=== PATIENT | male | born 1975 | race Caucasian/White ===

== ENCOUNTER 2016-09-15 15:36 | Emergency (ER) | payer SELFPAY ==
[~2016-09-15] VITALS: Ht 170.2 cm; Wt 77.1 kg
[2016-09-15 16:00] VITALS: BP 146/73
[2016-09-15] MEDS ORDERED: ORPH100T PO (16:16)
[2016-09-15] MEDS ORDERED: HYDR-971 PO (16:16)
[2016-09-15] MEDS ORDERED: PRED50TA PO (16:16)
--- NOTE | 2016-09-15 16:16 | PHYS DOC ---
Past Medical History Past Medical History: Other Additional Past Medical Histor: Patient states "I may have high blood pressure ", CHRONIC BACK PAIN, SEAS AL Past Surgical History: No Surgical History Alcohol Use: None Drug Use: None Adult General Chief Complaint Chief Complaint: BACK PAIN - NO INJURY [facility] HPI Patient is a 40 year old male who presents Emergency Department with complaint of ongoing low back pain past 2 weeks. Patient reports his left-sided low back pain that radiates down his left leg , across his groin and then down into his foot. Patient states he's had intermittent numbness of his entire foot during this period of time. Patient states he has a history of "a bad back" without any known history of spinal column or spinal cord injuries. He denies any history of neuromuscular disorders. Patient denies any previous images to his back. He denies saddle anesthesia or incontinence of urine and bowel. Patient states that the inciting injury was when he was lifting and moving a hot water heater 2 weeks ago. He does not currently have a primary care doctor. Review of Systems Review of Systems Constitutional: Denies fever or chills [] Eyes: Denies change in visual acuity, redness, or eye pain [] HENT: Denies nasal congestion or sore throat [] Respiratory: Denies cough or shortness of breath [] Cardiovascular: No additional information not addressed in HPI [] GI: Denies abdominal pain, nausea, vomiting, bloody stools or diarrhea [] : Denies dysuria or hematuria [] Musculoskeletal: Denies back pain or joint pain [] Integument: Denies rash or skin lesions [] Neurologic: Denies headache, focal weakness or sensory changes [] Endocrine: Denies polyuria or polydipsia [] Allergies Allergies Allergies Coded Allergies Type Severity Reaction Last Updated Verified Penicillins Allergy Intermediate 11/17/14 Yes Physical Exam Physical Exam Constitutional: Well developed, well nourished, no acute distress, non-toxic appearance. [] HENT: Normocephalic, atraumatic, bilateral external ears normal, oropharynx moist, no oral exudates, nose normal. [] Eyes: PERRLA, EOMI, conjunctiva normal, no discharge. [] Neck: Normal range of motion, no tenderness, supple, no stridor. [] Cardiovascular:Heart rate regular rhythm, no murmur [] Lungs & Thorax: Bilateral breath sounds clear to auscultation [] Abdomen: Bowel sounds normal, soft, no tenderness, no masses, no pulsatile masses. [] Skin: Warm, dry, no erythema, no rash. [] Back: Patient's back is without any obvious evidence of injury or deformity. There are no overlying skin lesions suggestive of shingles. There is no CVA tenderness. Patient's right paraspinous soft tissues and spinal column are nontender to palpation. Patient's tenderness to palpation to the left paraspinous soft tissues at the level of L1-L5 into S1 and then laterally into his left buttock. There are no palpable defects, deformities or spasms. Extremities: Bilateral lower extremities warm and dry. There are no dystrophic changes to either lower extremity. Strength is symmetric. Patient does complain of pain to his left anterior thigh with straight leg raise is performed. Neurologic: Alert and oriented X 3, normal motor function, normal sensory function, no focal deficits noted. [] Psychologic: Affect normal, judgement normal, mood normal. [] Current Patient Data Vital Signs Vital Signs Date Time Temp Pulse Resp B/P Pulse Ox O2 Delivery O2 Flow Rate FiO2 09/15/16 16:00 108 18 100 Room Air EKG EKG [] Radiology/Procedures Radiology/Procedures [] Course & Med Decision Making Course & Med Decision Making Pertinent Labs and Imaging studies reviewed. (See chart for details) [] Dragon Disclaimer Dragon Disclaimer This electronic medical record was generated, in whole or in part, using a voice recognition dictation system. Departure Departure Impression: Primary Impression: Lumbosacral strain Additional Impression: Lumbosacral radiculopathy Disposition: 01 HOME, SELF-CARE Condition: GOOD Referrals: NO PCP (PCP) Patient Instructions: Lumbosacral Radiculopathy, Lumbosacral Strain Additional Instructions: 1. Take the medications as prescribed. 2. Review the discharge instructions provided for self-care and reasons to return the emergency department. 3. Use the pamphlet provided for assistance in finding a primary care doctor's office in which you may follow up within the next 7-10 days. Scripts Prednisone 50 Mg [id number] Mg PO DAILY 5 Days Prov:ROWENA BARCENAS 09/15/16 Orphenadrine Citrate 100 Mg Tablet.er100 Mg PO BID muscle relaxer #14 Prov:ROWENA BARCENAS 09/15/16 Hydrocodone/Apap 5-325 (Sisters 5-325 Tablet)1 Each Tablet1 Tab PO PRN Q6HRS PRN PAIN #15 TAB Prov:ROWENA BARCENAS 09/15/16 Problem Qualifiers ROWENA BARCENAS Sep 15, 2016 16:16
[2016-09-15] MEDS ORDERED: ORPHENADRINE CITRATE 60 MG/2 ML VIAL. IM ONE (17:00)
[2016-09-15] MEDS ORDERED: KETOROLAC TROMETHAMINE 60 MG/2 ML INJ. IM ONE (17:00)
== END 2016-09-15 16:40 | disposition home or self-care (01) ==
LOC: ER 15:36
DX: Z88.0 Allergy status to penicillin (principal); M54.17 Radiculopathy, lumbosacral region; S39.012A Strain of muscle, fascia and tendon of lower back, initial encounter; X58.XXXA Exposure to other specified factors, initial encounter; Y93.89 Activity, other specified; Y92.89 Other specified places as the place of occurrence of the external cause; Y99.8 Other external cause status
CPT/HCPCS: 96372; 99284; J1885; J2360